=== PATIENT | male | born 1960 | race Caucasian/White ===

== ENCOUNTER 2020-07-30 10:19 | Emergency (ER) | payer OTHER ==
[~2020-07-30] VITALS: Ht 165.1 cm; Wt 69.4 kg
[2020-07-30 10:22] VITALS: BP 119/79
[2020-07-30 11:13] LABS: BASOPHILS % (AUTO) 1.6 % (0.0-2.0); EOSINOPHILS % (AUTO) 7.5 % (0.0-3.0); HEMATOCRIT 39.2 % (42.0-52.0); HEMOGLOBIN 12.4 G/DL (14.2-18.0); LYMPHOCYTES % (AUTO) 17.6 % (20.0-45.0); MEAN CORPUSCULAR VOLUME 87 FL (80-99); MONOCYTES % (AUTO) 7.7 % (1.0-10.0); NEUTROPHILS % (AUTO) 65.6 % (45.0-75.0); PLATELET COUNT 363 K/UL (150-450); RED BLOOD COUNT 4.49 M/UL (4.70-6.10); RED CELL DISTRIBUTION WIDTH 14.9 % (11.6-14.8); WHITE BLOOD COUNT 5.8 K/UL (4.8-10.8)
[2020-07-30 11:37] LABS: ANION GAP 8 mmol/L (5-15); BLOOD UREA NITROGEN 13 mg/dL (7-18); CALCIUM 8.9 MG/DL (8.5-10.1); CARBON DIOXIDE 27 MMOL/L (21-32); CHLORIDE 99 MMOL/L (98-107); CREATININE 0.8 MG/DL (0.55-1.30); POTASSIUM 4.1 MMOL/L (3.5-5.1); SODIUM 134 MMOL/L (136-145)
--- NOTE | 2020-07-30 11:37 | Diagnostic Imaging Report ---
Indications: Confusion, altered mental status Technique: Spiral acquisitions obtained through the brain. Angled axial and coronal 5 x 5 mm slices were reconstructed. Total dose length product 965 mGycm. CTDI vol(s) 53 mGy. Dose reduction achieved using automated exposure control Comparison: None. Findings: Ventricles and extra axial CSF spaces are prominent for age. There is periventricular deep white matter low-attenuation, consistent with chronic microvascular ischemic change. Normal barboza-white differentiation otherwise. Visualized orbits are unremarkable. There is ethmoid and bilateral maxillary sinus mucosal thickening. The mastoids are clear. Impression: Mild age-related and involutional changes, somewhat prominent for age. Negative for acute intracranial bleed or mass effect. The CT scanner at [facility] is accredited by the [employer] and the scans are performed using protocols designed to limit radiation exposure to as low as reasonably achievable to attain images of sufficient resolution adequate for diagnostic evaluation.
--- NOTE | 2020-07-30 11:40 | Emergency Room Report ---
History of Present Illness General Chief Complaint: Altered Mental Status Source: Family Member Present Illness HPI 60-year-old male with a history of anxiety and depression, alcohol use disorder, alcoholic hepatitis, recent admission at [facility] for alcohol withdrawal seizures, Covid positive several months ago, brought in for possible confusion. Patient is homeless but over the past several days has been living in a [facility]. He was sent here "for a checkup" according to the patient. However we had received a call from the patient's primary care provider's office who says that the patient has been more confused recently. Patient has no complaints at this time. He is completely awake and alert and answering questions appropriately. Denies headache, vision changes, skin changes, changes in eye color, fevers, chills, chest pain, palpitations, shortness of breath, back pain, abdominal pain, nausea, vomiting, diarrhea, dysuria. Says he has abstained from drugs and alcohol over the past several weeks. He takes trazodone and Celexa. 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 COVID-19 Screening: Negative COVID-19 COVID-19 Testing Source: nasal Nursing Documentation-[facility] Past Medical History: No History, Except For Hx Cardiac Problems: Yes - CHF, Cirrohsis Hx Hypertension: Yes History Of Psychiatric Problem: Yes - Anxiety, depression, ETOH abuse Review of Systems All Other Systems: negative except mentioned in HPI Physical Exam Vital Signs Date Time Temp Pulse Resp B/P (MAP) Pulse Ox O2 Delivery O2 Flow Rate FiO2 07/30/20 10:22 98.2 81 18 119/79 (92) 97 Room Air 07/30/20 11:20 100 Sp02 EP Interpretation: reviewed, normal General Appearance: no apparent distress, alert, GCS 15, non-toxic Head: normocephalic, atraumatic Eyes: bilateral eye normal inspection, bilateral eye PERRL ENT: hearing grossly normal, normal pharynx, no angioedema, normal voice Neck: full range of motion, supple/symm/no masses Respiratory: chest non-tender, lungs clear, normal breath sounds, speaking full sentences Cardiovascular #1: regular rate, rhythm, no edema Cardiovascular #2: 2+ carotid (R), 2+ carotid (L), 2+ radial (R), 2+ radial (L), 2+ dorsalis pedis (R), 2+ dorsalis pedis (L) Gastrointestinal: normal bowel sounds, non tender, soft, non-distended, no guarding, no rebound Rectal: deferred Genitourinary: normal inspection, no CVA tenderness Musculoskeletal: back normal, normal range of motion, gait/station normal, non- tender Neurologic: alert, motor strength/tone normal, oriented x3, sensory intact, responsive, speech normal Psychiatric: judgement/insight normal, memory normal, mood/affect normal, no suicidal/homicidal ideation Lymphatic: no adenopathy Medical Decision Making Diagnostic Impression: Primary Impression: Fatigue ER Course Procedure: CT Head no Contrast Indications: Confusion, altered mental status Technique: Spiral acquisitions obtained through the brain. Angled axial and coronal 5 x 5 mm slices were reconstructed. Total dose length product 965 mGycm. CTDI vol(s) 53 mGy. Dose reduction achieved using automated exposure control Comparison: None. Findings: Ventricles and extra axial CSF spaces are prominent for age. There is periventricular deep white matter low-attenuation, consistent with chronic microvascular ischemic change. Normal barboza-white differentiation otherwise. Visualized orbits are unremarkable. There is ethmoid and bilateral maxillary sinus mucosal thickening. The mastoids are clear. Impression: Mild age-related and involutional changes, somewhat prominent for age. Negative for acute intracranial bleed or mass effect. Laboratory Tests Test 07/30/20 11:15 07/30/20 12:30 White Blood Count 5.8 K/UL (4.8-10.8) Red Blood Count 4.49 M/UL (4.70-6.10) L Hemoglobin 12.4 G/DL (14.2-18.0) L Hematocrit 39.2 % (42.0-52.0) L Mean Corpuscular Volume 87 FL (80-99) Mean Corpuscular Hemoglobin 27.7 PG (27.0-31.0) Mean Corpuscular Hemoglobin Concent 31.8 G/DL (32.0-36.0) L Red Cell Distribution Width 14.9 % (11.6-14.8) H Platelet Count 363 K/UL (150-450) Mean Platelet Volume 5.8 FL (6.5-10.1) L Neutrophils (%) (Auto) 65.6 % (45.0-75.0) Lymphocytes (%) (Auto) 17.6 % (20.0-45.0) L Monocytes (%) (Auto) 7.7 % (1.0-10.0) Eosinophils (%) (Auto) 7.5 % (0.0-3.0) H Basophils (%) (Auto) 1.6 % (0.0-2.0) Sodium Level 134 MMOL/L (136-145) L Potassium Level 4.1 MMOL/L (3.5-5.1) Chloride Level 99 MMOL/L (98-107) Carbon Dioxide Level 27 MMOL/L (21-32) Anion Gap 8 mmol/L (5-15) Blood Urea Nitrogen 13 mg/dL (7-18) Creatinine 0.8 MG/DL (0.55-1.30) Estimated Glomerular Filtration Rate > 60 mL/min (>60) Glucose Level 128 MG/DL (74-106) H Calcium Level 8.9 MG/DL (8.5-10.1) Total Bilirubin 1.0 MG/DL (0.2-1.0) Aspartate Amino Transferase (AST) 65 U/L (15-37) H Alanine Aminotransferase (ALT) 55 U/L (12-78) Alkaline Phosphatase 151 U/L (46-116) H Troponin I 0.053 ng/mL (0.000-0.056) Total Protein 8.2 G/DL (6.4-8.2) Albumin 3.3 G/DL (3.4-5.0) L Globulin 4.9 g/dL Albumin/Globulin Ratio 0.7 (1.0-2.7) L Thyroid Stimulating Hormone (TSH) 3.785 uiU/mL (0.358-3.740) Free Thyroxine 1.22 NG/DL (0.76-1.46) Serum Alcohol < 3 mg/dL Ammonia Pending EKG: NSR, no ischemia, intervals WNL. No ectopy. T wave inversion in lead I and aVL Rhythm strip: patient monitored for arrhythmias - no malignant dysrhythmias, runs of PVCs, nor pauses noted CXR: No infiltrate/effusion. Mediastinum within normal limits. No consolidations. No free air under the diaphragm. No bony abnormalities 60-year-old male sent to the emergency department for suspected altered mental status. However when patient arrived he was completely awake and alert and had a normal neurologic and otherwise normal physical examination. He was awake and alert and answering all questions appropriately. CBC, CMP, troponin all unremarkable. Chest x-ray and CT head normal. EKG showed T wave inversions in leads I and aVL however patient denied any chest pain or palpitations or shortness of breath. I asked the patient why he thought that he was being evaluated for altered mental status he replied "all I was told was I needed a checkup and to follow-up with my doctor." I spoke with patient's physician Dr. Medeiros who agreed patient was stable for discharge and follow-up. Patient discharged in stable condition. Last Vital Signs Date Time Temp Pulse Resp B/P (MAP) Pulse Ox O2 Delivery O2 Flow Rate FiO2 07/30/20 11:20 67 21 Room Air 100 07/30/20 11:20 98.4 07/30/20 10:22 97 Sylvester Aguero M.D. Jul 30, 2020 11:40
[2020-07-30 11:50] LABS: ALANINE AMINOTRANSFERASE 55 U/L (12-78); ALBUMIN 3.3 G/DL (3.4-5.0); ALBUMIN/GLOBULIN RATIO 0.7 (1.0-2.7); ALKALINE PHOSPHATASE 151 U/L (46-116); ASPARTATE AMINO TRANSFERASE 65 U/L (15-37)
--- NOTE | 2020-07-30 11:53 | NUR ---
60-year-old male coming to ER with a history of anxiety and depression, alcohol use disorder, alcoholic hepatitis, recent admission at [facility] for alcohol withdrawal seizures, Covid positive several months ago, brought in for possible confusion. Patient is homeless but over the past [facility] He was sent here "for a checkup" according to the patient. However we had received a call from the patient's primary care provider's office who says that the patient has been more confused recently. Patient has no complaints at this time. He is completely awake and alert and answering questions appropriately. Denies headache, vision changes, skin changes, changes in eye color, fevers, chills, chest pain, palpitations, shortness of breath, back pain, abdominal pain, nausea, vomiting, diarrhea, dysuria. Says he has abstained from drugs and alcohol over the past several weeks. He takes trazodone and Celexa.
[2020-07-30] MEDS ORDERED: LORazepam 1mg tab ORAL ONE (13:15)
--- NOTE | 2020-07-30 13:32 | NUR ---
Called Sunshine at the halfway for pick-up. She will send an [employer] and contact us when the [employer] is outside of the ER.
--- NOTE | 2020-07-30 13:44 | NUR ---
Picked up by [facility]
--- NOTE | 2020-07-30 15:39 | Diagnostic Imaging Report ---
Indication: Shortness of breath Technique: One view of the chest Comparison: none Findings: Lungs and pleural spaces are clear. Heart size is normal. Impression: No acute process
== END 2020-07-30 13:31 | disposition home or self-care (01) ==
LOC: EMR 10:59
DX: R53.83 Other fatigue (principal); I11.0 Hypertensive heart disease with heart failure; I50.9 Heart failure, unspecified; Z86.16 Personal history of COVID-19; F10.21 Alcohol dependence, in remission; Z79.899 Other long term (current) drug therapy
CPT/HCPCS: 36415; 70450; 71045; 80053; 82140; 84439; 84443; 84484; 85025; 93005; G0480; Z7502; 99284